=== PATIENT | male | born 1955 | race Caucasian/White ===

== ENCOUNTER 2022-06-06 16:17 | Inpatient (IN) | payer OTHER ==
[~2022-06-06] VITALS: Ht 180.3 cm; Wt 72.6 kg
[2022-06-06 16:17] VITALS: BP_SYST 120
--- NOTE | 2022-06-06 16:17 | NUR ---
BROUGHT BACK TO BED #8 AND TRIAGED. REPORT GIVEN TO AKIL
--- NOTE | 2022-06-06 16:52 | NUR ---
Pt bib to ER from home, CC sharp chest wall pain since 1529, denies SOB, denies NVD. Pt is aaox4. Denies cardiac history.
--- NOTE | 2022-06-06 17:21 | NUR ---
# 20 gauge angiocath placed to rac. Use of asceptic technique. Opsite placed over site. Blood return noted. Blood for lab drawn from site. Flushed with 10 cc of normal saline. No evidence of infiltration noted. Patient tolerated well.
[2022-06-06 17:31] LABS: BASOPHILS % (AUTO) 0.5 % (0.0-2.0); EOSINOPHILS # (AUTO) 0.1 K/uL (0.0-0.4); HEMATOCRIT 40.1 % (36-54); HEMOGLOBIN 14.1 g/dL (14.0-18.0); LYMPHOCYTES # (AUTO) 1.3 K/uL (1.0-5.5); LYMPHOCYTES % (AUTO) 20.5 % (20.5-51.5); MEAN CORPUSCULAR HEMOGLOBIN 31 pg (27-31); MEAN CORPUSCULAR HGB CONC 35 % (32-36); MEAN CORPUSCULAR VOLUME 88 fL (79.0-98.0); MONOCYTES # (AUTO) 0.5 K/uL (0.0-1.0); NEUTROPHILS # (AUTO) 4.3 K/uL (1.8-7.7); PLATELET COUNT (AUTO) 246 K/uL (130-430); RED BLOOD CELL COUNT(AUTO) 4.57 MIL/uL (4.2-6.2); WHITE BLOOD COUNT (AUTO) 6.3 K/uL (4.8-10.8)
[2022-06-06 17:50] LABS: ANION GAP 5 (5-15); CALCIUM 8.9 mg/dL (8.4-11.0); CHLORIDE 106 mmol/L (98-107); CREATININE 0.81 mg/dL (0.55-1.30); GLUCOSE 102 mg/dL (70-99); UREA NITROGEN, BLOOD 14 mg/dL (8-21)
--- NOTE | 2022-06-06 17:53 | NUR ---
Radiology dept bedside with CT in room.
[2022-06-06 18:13] LABS: ALANINE AMINOTRANSFERASE 19 U/L (12-78); ALBUMIN 3.6 g/dL (3.4-4.8); ASPARTATE AMINOTRANSFERASE 12 U/L (10-37); PHOSPHORUS 3.6 mg/dL (2.7-4.5); THYROID STIMULATING HORMONE 1.62 uIu/mL (0.36-3.74); TOTAL BILIRUBIN 0.2 mg/dL (0.0-1.0)
[2022-06-06 18:16] LABS: GFR AFRICAN AMERICAN 122 mL/min (>90)
--- NOTE | 2022-06-06 19:15 | NUR ---
Report received from NABIL Millan; assuming care at this time.
--- NOTE | 2022-06-06 19:30 | NUR ---
Patient A/Ox4, VSS, ambulatory, resp even and unlabored. Patient lying in bed with side rails raised. Patient's son and significant other at bedside. Nad noted at this time.
[2022-06-06] MEDS ORDERED: LORazepam 1 MG TABLET PO ONE (20:15)
--- NOTE | 2022-06-06 20:45 | NUR ---
Note jakeone in EDM - 06/06/22 at 2053 by SDEDVT Patient will be admitted to care of Dr Hills. Admitted to med surg unit. Will go to room 111B. Belongings list completed. Complete and up to date summary report printed. SBAR report given to MACI Winn at bedside with opportunity for questions.
--- NOTE | 2022-06-06 21:10 | NUR ---
Admit bed requested Patient will be admitted to care of . Admitted to TELE unit. Diagnosis CHEST PAIN Inpatient (Yes or No) YES Observation (Yes or No) NO Orientation concerns or request close to nursing station (Yes or No) NO Covid Status NEGATIVE On vent or bipap NO Isolation requirements NO Needs a sitter NO From Home (Yes or if No enter name of facility) YES Requires Dialysis (Yes or No) NO Med Rec Completed (Yes of No) YES
[2022-06-06] MEDS ORDERED: MAGNESIUM SULFATE 50 ML IV PRN (21:30)
[2022-06-06] MEDS ORDERED: ONDANSETRON HCL 4 MG/2 ML VIAL IVP PRN (21:30)
[2022-06-06] MEDS ORDERED: MUPIROCIN 2% TOPICAL OINTMENT 22 GM NS PRN (21:30)
[2022-06-06] MEDS ORDERED: LORazepam 2 MG/ML VIAL IVP PRN (21:30)
[2022-06-06] MEDS ORDERED: DOCUSATE SODIUM 100 MG CAPSULE PO PRN (21:30)
[2022-06-06] MEDS ORDERED: ACETAMINOPHEN 325 MG TABLET PO PRN (21:30)
[2022-06-06] MEDS ORDERED: ZOLPIDEM TARTRATE 5 MG TABLET PO PRN (21:30)
[2022-06-06] MEDS ORDERED: MORPHINE 2 MG/ML INJ. SYRINGE IVP PRN ×2 (21:30)
[2022-06-06] MEDS ORDERED: POTASSIUM CHLORIDE 20 MEQ TAB.PRT.SR PO PRN (21:30)
--- NOTE | 2022-06-06 22:18 | NUR ---
CONSULTATION CALLED FOR DR. RUSSELL FOR CONSULT OF CHEST PAIN ORDER BY DR. MENDOZA SPOKE WITH MICAH
--- NOTE | 2022-06-06 22:25 | NUR ---
Patient will be admitted to care of Dr Hills. Admitted to Tele unit. Will go to room 118A. Belongings list completed. Complete and up to date summary report printed. SBAR report given to MACI Pfeiffer at bedside with opportunity for questions.
[2022-06-06 22:51] VITALS: BP_SYST 133
--- NOTE | 2022-06-06 23:08 | NUR ---
RECEIVED PATIENT FROM ER FOR CHEST PAIN , PATIENT IS A/O X4 , AZERBAIJANI SPEAKING, HARD OF HEARING , HEARING AID AT BEDSIDE , NO DISTRESS , NO C/O CHEST PAIN AT THIS TIME, SINUS RHYTHM - RATE OF 55 BPM ON THE MONITOR. ORIENTED PATIENT TO UNITS , INITIAL ASSESSMENT DONE, CALL LIGHT WITHIN REACH.
--- NOTE | 2022-06-07 01:30 | NUR ---
SINUS DANN WITH RATE OF 51 BPM ON THE MONITOR, PATIENT IS SLEEPING AT THIS TIME, WILL CONTINUE TO MONITOR.
[2022-06-07 01:34] VITALS: BP_SYST 125
--- NOTE | 2022-06-07 06:13 | NUR ---
NO C/O CHEST PAIN AT THIS TIME.
[2022-06-07 08:00] VITALS: BP_SYST 169
[2022-06-07] MEDS ORDERED: NALOXONE HCL 0.4 MG/ML AMP (NARCAN) IVP PRN (08:00)
[2022-06-07] MEDS ORDERED: HYDROcodone/ACETAMIN 5-325 MG TAB (NORCO/ VICODIN) PO PRN (08:00)
--- NOTE | 2022-06-07 08:00 | NUR ---
Report received from Cathleen Lyman. Pt is awake alert and oriented x4, BP elevated, will inform Dr. Wilkerson, otherwise stable, denies any pain, SB in the 51 hr the lowest, no cardiac or respiratory distress noted. Pt is independent, able to get oob without assistance, skin clean dry and intact. Will continue to monitor pt. Assuming care.
--- NOTE | 2022-06-07 08:18 | NUR ---
Dr. Wilkerson here to see the patient.
[2022-06-07] MEDS: ASPIRIN 81 MG TAB.CHEW PO SCH (09:34)
[2022-06-07] MEDS: ENOXAPARIN SODIUM 40 MG/0.4 ML SYRINGE SUBCUT SCH (09:35)
[2022-06-07] MEDS: METOPROLOL SUCCINATE 50 MG TAB.SR.24H (TOPROL XL) PO SCH (09:35)
--- NOTE | 2022-06-07 09:42 | NUR ---
REMINDED RT TRIP TO INFORM BRADY OF THE REGULAR STRESS TEST THAT DR RUSSELL HAS SCHEDULED FOR 1000 TOMORROW, 06/08/22.
[2022-06-07 12:00] VITALS: BP_SYST 140
--- NOTE | 2022-06-07 14:01 | NUR ---
Pt is NPO, paged Dr. Wilkerson to clarify NPO order. Awaiting for call back.
[2022-06-07 15:03] VITALS: BP_SYST 140
--- NOTE | 2022-06-07 18:23 | NUR ---
NO significant changes noted. Pt remains stable. Pt is aware not to eat breakfast tomorrow for breakfast for stress test in the morning.
--- NOTE | 2022-06-07 19:20 | NUR ---
PM ASSESSMENT; -Pt is a/ox4, resting in bed comfortably. Pt denies any chest pain,pain,sob,or any acute distress. Discussed poc, all safety measures, and if experiencing any chest pain,pain,or any acute distress to use call light for assistance, pt verbalized understanding. call light w/in reach. cont to monitor pt.
[2022-06-07 19:45] VITALS: BP_SYST 115
[2022-06-07 23:40] VITALS: BP_SYST 136
--- NOTE | 2022-06-07 23:40 | NUR ---
NOTES; -Pt is informed and awared that he will be NPO after midnight for Stress test, pt verbalized understanding. Gave sandwiches, juice, and pudding, pt ate all of them. Pt's condition stable. Pt denies any chest pain,pain,sob,or any acute distress. VSS stable except sinus bradycardia. Call light w/in reach. Cont to monitor pt.
--- NOTE | 2022-06-08 04:21 | NUR ---
ROUNDS; -Pt is asleep. NO s/s any acute distress noted. Call light w/in reach. Cont to monitor pt.
--- NOTE | 2022-06-08 04:45 | NUR ---
NOTES; -Pt woke and stated that he doesn't stress test and he is claustrophobic and he wants to leave hospital now. Pt refused to go back to his room and sitting in a chair in the hallway while waiting for Garfield-his son to pick him up. Called son earlier,left message but no answer from his son yet. He stated that room is locked but it's locked at all. The door of pt's room was closed bc his roommate wanted to keep down the noise. Addendum: 06/08/22 at 0546 by Two MACI Veras RN ADDITIONAL NOTES; PT DRANK WATER WHILE WAS WAITING OUTSIDE THE HALLWAY WHEN I WAS JUST CAME OUT FROM ANOTHER PT'S ROOM.
--- NOTE | 2022-06-08 05:13 | NUR ---
NOTES; 2ND CALLED TO MELLISSA-SON, LEFT MESSAGE ON HIS SON' S CELLPHONE ([phone]) -Pt refused to return to his bed and he preferred to sit in a chair at hallway while waiting for his son to call back. He also refused to put telemetry box even after explained the risks and benefits to pt. He dressed up in his own clothing. Pt's condition stable. Cont to monitor pt.
--- NOTE | 2022-06-08 05:42 | NUR ---
NOTES; -Pt agreed to return to his room and now pt is laying in bed. Pt is still refusing to put telemetry box. He is still saying that he doesn't want stress test bc he had done before and he wasn't in a good condition and he stated," it brings back bad old memory." Pt's condition stable.
--- NOTE | 2022-06-08 06:30 | NUR ---
NOTES; -Pt awakes, sitting in bed, customer account technician is drawing am labs now. pt denies any chest pain,pain,sob,or any acute distress. Pt's condition stable. All safety measures in place. Call light w/in reach. Pt wants to stay for break and still waiting for family to be brass pickler but no return call from any family yet. Paged Dr. Wilkerson's exchange and no callback yet regarding pt wants to be AMA even after explained risks/benefits, pt is still insisting to be AMA today. Will endorse to day shift nurse to cont care.
--- NOTE | 2022-06-08 07:20 | NUR ---
Report received from nightclub manager RN for continuity of care. Patient stable condition.
[2022-06-08 07:57] LABS: ALBUMIN 3.6 g/dL (3.4-4.8); CALCIUM 8.9 mg/dL (8.4-11.0); CREATININE 0.79 mg/dL (0.55-1.30); TOTAL BILIRUBIN 0.4 mg/dL (0.0-1.0)
[2022-06-08 08:00] VITALS: BP_SYST 148
--- NOTE | 2022-06-08 09:09 | NUR ---
Dr. Wilkerson speaking with patient regarding stress test. Patient ok with performing today.
[2022-06-08] MEDS ORDERED: METO50TA7 PO (10:02)
[2022-06-08] MEDS ORDERED: ASPI-1393 PO ×2 (10:02)
[2022-06-08] MEDS: ASPIRIN 81 MG TAB.CHEW PO SCH (10:37)
[2022-06-08] MEDS: METOPROLOL SUCCINATE 50 MG TAB.SR.24H (TOPROL XL) PO SCH (10:38)
[2022-06-08] MEDS: ENOXAPARIN SODIUM 40 MG/0.4 ML SYRINGE SUBCUT SCH (10:38)
[2022-06-08] MEDS ORDERED: BUSP5TAB3 PO (11:26)
[2022-06-08] MEDS ORDERED: APIX5TAB PO (11:26)
[2022-06-08] MEDS ORDERED: busPIRone HCL 5 MG TABLET PO ONE (11:30)
[2022-06-08 12:00] VITALS: BP_SYST 132
[2022-06-08 12:59] VITALS: BP_SYST 136
--- NOTE | 2022-06-08 13:09 | NUR ---
Patient ready for discharge. All paperwork and belongings given to patient. Patient aware of discharge plan of care. IV removed. Patient ambulatory with steady gait to wheelchair. Patient transported to personal vehicle where family member took patient home. All medication education prescriptions discussed with patient.
[2022-06-08] MEDS ORDERED: busPIRone HCL 5 MG TABLET PO SCH (21:00)
[2022-06-08] MEDS ORDERED: APIXABAN 2.5 MG TABLET PO SCH (21:00)
== END 2022-06-08 13:17 | disposition home or self-care (01) | DRG 392 ==
LOC: SED 16:17 → STU 21:07 → SMU 22:06 → STU 23:08
PROVIDERS: ADMIT General Practice; ATTEND General Practice
DX: K21.9 Gastro-esophageal reflux disease without esophagitis (principal); I24.9 Acute ischemic heart disease, unspecified; F12.10 Cannabis abuse, uncomplicated; I48.0 Paroxysmal atrial fibrillation; I25.10 Atherosclerotic heart disease of native coronary artery without angina pectoris; Z20.822 Contact with and (suspected) exposure to COVID-19; I10 Essential (primary) hypertension; F41.9 Anxiety disorder, unspecified; Z87.891 Personal history of nicotine dependence
CPT/HCPCS: 36415; 71045; 80053; 80061; 83735; 84100; 84443; 84484; 85025; 93005; 93017; 93306; 99285; G0378; J1650